=== PATIENT | male | born 1955 | race Caucasian/White ===

== ENCOUNTER → 2019-10-31 | Outpatient (CLI) | payer MEDICARE, OTHER ==
[~2019-10-31] MED LIST: ARCAPTA IH; ASPIRIN 81M81 MG/TA2 PO; AUVI-Q0.3 IM; BENICAR40 MG PO; CATAPRES-TTS 10.1 M1 TD; COMBIVENT INH14.7 GM IH; DEPO-TESTOS200 MG/M1 IM; FLONASE NASAL S16 GM NS; FORTAMET1000 MG PO; GENTAMICIN180 MG/502 NS; HUMALOG; LANTUS100 U/ML SC; LEXAPRO20 MG PO; LISINOPRIL20 MG PO; MOTRIN 200200 MG/TAB PO; MOTRIN 800800 MG/TAB PO; MULTIPLE VITAMI1 CAP PO; NORVASC 10MG10 MG PO; NOVOLOG 100U100 U/M1 SC; PRIL40 PO; PRILOSEC 20MG20 MG PO; PROVENTIL0.09 MG/A1 IH; RAPAFLO8 MG PO; SINUS RINSE NS; TUDORZA IH; ZOCOR 20MG20 MG PO; ZOCOR40 MG PO; ZYRTEC 10MG10 MG PO; allergy shot
== END ==
LOC: COL.RAD 13:50
DX: M25.511 Pain in right shoulder (principal)
CPT/HCPCS: J3301; Q9967

== ENCOUNTER → 2020-07-27 | Outpatient (CLI) | payer MEDICARE, OTHER | LOC: COL.RAD 08:56 | DX: G62.9 Polyneuropathy, unspecified (principal); M54.17 Radiculopathy, lumbosacral region; M54.12 Radiculopathy, cervical region | CPT/HCPCS: A9503 ==